=== PATIENT | male | born 1960 | race Caucasian/White ===

== ENCOUNTER → 2017-08-26 | Outpatient (CLI) | payer BC ==
[~2017-08-26] MED LIST: ANTARA PO; FAMOTIDINE20 MG PO; FENOFIBRATE PO; HYDROCHLOROTHIA25 MG PO; MEGA RED PO; METOPROLOL TART50 MG PO; MICARDIS80 MG PO; NIACIN500 M2 PO; PRILOSEC OTC20 MG PO
--- NOTE | 2017-08-26 14:59 | Diagnostic Imaging Report ---
PROCEDURE:X-RAY MODIFIED BARIUM SWALLOW COMPARISON:[facility], DX, MODIFIED BA. SWALLOW, 08/09/2014, 13:01. INDICATIONS:GERD and dysphasia DISCUSSION:Fluoroscopic examination was performed in conjunction with speech pathology, during swallowing of a variety of thin and thick liquid consistencies. The Radiologist was in attendance during the entire exam. Previously reported laryngeal penetration and aspiration. There was penetration into the laryngeal vestibule with only thin liquids. Ronak aspiration with thin liquids during swallowing mechanism is noted. Chin tuck maneuver is effective and eliminated the aspiration. Fluoroscopy time: 1.1 minutes Total dose: 9.19 mGy CONCLUSION:Penetration into the laryngeal vestibule with thin liquids only. There was ronak overt aspiration with thin liquids during swallowing mechanism. Chin tuck maneuver was effective and eliminated the aspiration. Please see the report from speech pathology for complete details. Renaldo Goodwin D.O. Dictated by: Renaldo Goodwin D.O. on 08/26/2017 at 15:07 Electronically approved by: Renaldo Goodwin D.O. on 08/26/2017 at 15:07
== END ==
LOC: DX 11:42
PROVIDERS: ATTEND Internal Medicine Gastroenterology
DX: R13.10 Dysphagia, unspecified (principal)
CPT/HCPCS: 74230

== ENCOUNTER → 2021-02-18 | Day surgery (SDC) | payer BC ==
[~2021-02-18] MED LIST changes: +ATENOLOL50 MG PO; +DIOVAN160 MG PO; +FENTANYL CITRATE/PF 100MCG/2 ML INJ ONE; +HYOSCYAMINE SULFATE 0.5 MG/ML INJ ONE; +LIDOCAINE HCL 2% LOCAL INJ 5 ML SDV VIAL INJ ONE; +MIDAZOLAM HCL 2 MG/2 ML VIAL ONE; +PANTOPRAZOLE SO40 MG PO; +PROPOFOL IV EMULSION 10 MG/ML 20 ML VIAL ONE
[2021-02-18 09:13] VITALS: BP 106/72
== END | disposition home or self-care (01) ==
LOC: OR 06:02
PROVIDERS: ATTEND Internal Medicine Gastroenterology
DX: K22.70 Barrett's esophagus without dysplasia (principal); Z86.010 Personal history of colon polyps; K31.7 Polyp of stomach and duodenum; K29.70 Gastritis, unspecified, without bleeding; K20.90 Esophagitis, unspecified without bleeding; K57.30 Diverticulosis of large intestine without perforation or abscess without bleeding; K64.8 Other hemorrhoids; G47.33 Obstructive sleep apnea (adult) (pediatric); K76.0 Fatty (change of) liver, not elsewhere classified; I10 Essential (primary) hypertension; E66.01 Morbid (severe) obesity due to excess calories; R00.1 Bradycardia, unspecified; E78.5 Hyperlipidemia, unspecified; Z01.810 Encounter for preprocedural cardiovascular examination; Z01.812 Encounter for preprocedural laboratory examination; Z20.822 Contact with and (suspected) exposure to COVID-19
CPT/HCPCS: 43239; 43450; 45378; 93005; J1980; J2001; J2250; J2704; J3010; U0002